=== PATIENT | female | born 1955 | race Caucasian/White ===

== ENCOUNTER 2017-03-26 09:04 | Emergency (ER) | payer BC ==
[2017-03-26 09:13] VITALS: BP 164/93
[2017-03-26] MEDS ORDERED: Sodium Chloride 0.9% 10 ML Syringe FLUSH PRN ×2 (09:49→10:18)
[2017-03-26] MEDS ORDERED: Sodium Chloride 0.9% 500 ML IV ONE (09:49)
[2017-03-26] MEDS ORDERED: HYDROmorphone 0.5 MG/0.5 ML Syringe IVPUSH ONE ×3 (09:49→15:32)
[2017-03-26] MEDS ORDERED: LORazepam 0.5 MG Tab PO ONE (09:49)
[2017-03-26] MEDS ORDERED: Iopamidol 612 MG/ML 100 ML Bottle IVPUSH ONE (10:18)
--- NOTE | 2017-03-26 12:42 | EDM.PDOC ---
ED HPI GENERAL MEDICAL PROBLEM - General Chief Complaint: Back Pain or Injury Stated Complaint: [facility] Time Seen by Provider: 03/26/17 09:33 Source of Information: Reports: Patient, RN Notes Reviewed - History of Present Illness INITIAL COMMENTS - FREE TEXT/NARRATIVE: 62-year-old lady comes in with severe low back pain. This started about 2 or 3 weeks ago, no fall or injury that patient can remember. The pain is primarily in the low mid back with radiation to the left lower extremity. The pain is definitely worse with motion, better to lie still. She is not having abdominal pain. No nausea vomiting fever or chills. She has had some trouble with back pains in the past but nothing near this severe. He has been seen her provider back at home, [place], [place] . She's been on anti-inflammatory medicine. That was stopped 2 days ago and she was started on oral prednisone. It sounds that she also had a steroid injection at that time. She also has been taking Flexeril and hydrocodone without meaningful relief of her discomfort. The pain was so bad this morning she was unable to get up or walk and therefore has come in by ambulance. Treatments STICKER HAND: Reports: Other (see below) Other Treatments STICKER HAND: hydrocodone flexeril prednisone Lower Back Pain Score (Numeric/FACES): 10 - Related Data Allergies Allergy/AdvReac Type Severity Reaction Status Date / Time No Known Allergies Allergy Verified 07/24/15 13:07 CDT Home Meds: Home Meds Levothyroxine [Synthroid] 1 tab PO DAILY 07/24/15 [History] Cyclobenzaprine [Flexeril] 10 mg PO TID 03/26/17 [History] Hydrocodone/Acetaminophen [Hydrocodon-Acetaminophen 5-325] 1 tab PO TID [History] Losartan [Cozaar] 50 mg PO DAILY 03/26/17 [History] Naproxen [Naprosyn] 500 mg PO Q12HR #20 tablet 03/26/17 [Rx] Prednisone [IJD: Prednisone] 10 mg PO TID 03/26/17 [History] oxyCODONE HCl/Acetaminophen [Percocet 5-325 mg Tablet] 1 each PO QID #20 tablet 03/26/17 [Rx] Past Medical History HEENT History: Reports: Impaired Vision Other HEENT History: wears glasses Cardiovascular History: Reports: Heart Murmur Respiratory History: Reports: None Gastrointestinal History: Reports: Other (See Below) Other Gastrointestinal History: colon cancer Genitourinary History: Reports: None [employer] History: Reports: None, Musculoskeletal History: Reports: Fracture Other Musculoskeletal History: left arm Neurological History: Reports: Migraines, Vertigo Psychiatric History: Reports: None Endocrine/Metabolic History: Reports: Hypothyroidism Hematologic History: Reports: None Immunologic History: Reports: None Oncologic (Cancer) History: Reports: Colon Dermatologic History: Reports: None - Past Surgical History Head Surgeries/Procedures: Reports: None HEENT Surgical History: Reports: Tonsillectomy Cardiovascular Surgical History: Reports: None Respiratory Surgical History: Reports: None GI Surgical History: Reports: Colonoscopy, Other (See Below) Other GI Surgeries/Procedures: bowel resection Female Surgical History: Reports: None Endocrine Surgical History: Reports: None Neurological Surgical History: Reports: None Musculoskeletal Surgical History: Reports: None Oncologic Surgical History: Reports: Other (See Below) Other Oncologic Surgeries/Procedures: bowel resection Dermatological Surgical History: Reports: None Social & Family History - Family History Family Medical History: Noncontributory - Tobacco Use Smoking Status *Q: Never Smoker - Caffeine Use Caffeine Use: Reports: Coffee - Alcohol Use Days Per Week of Alcohol Use: 7 Number of Drinks Per Day: 2 Total Drinks Per Week: 14 - Recreational Drug Use Recreational Drug Use: No ED ROS GENERAL - Review of Systems Review Of Systems: See Below Constitutional: Denies: Fever, Chills, Diaphoresis HEENT: Denies: Sinus Problem, Throat Pain, Vertigo Respiratory: Denies: Shortness of Breath, Pleuritic Chest Pain Cardiovascular: Denies: Chest Pain GI/Abdominal: Denies: Abdominal Pain, Nausea, Vomiting : Reports: No Symptoms Musculoskeletal: Reports: Back Pain (Severe low back pain), Leg Pain (Pain is radiated down both legs more on the left) Skin: Denies: Rash Neurological: Reports: Difficulty Walking. Denies: Numbness, Trouble Speaking, Weakness, Change in Speech ED EXAM,LOWER BACK PAIN/INJURY - Physical Exam Exam: See Below General Appearance: Alert, Moderate Distress Eye Exam: Bilateral Eye: PERRL Throat/Mouth: Normal Inspection, Normal Oropharynx Head: Atraumatic. No: Facial Swelling Neck: Supple, Full Range of Motion Respiratory/Chest: Lungs Clear, Normal Breath Sounds Cardiovascular: Regular Rate, Rhythm GI/Abdominal: Soft, Non-Tender Back Exam: Paraspinal Tenderness (Left low back). No: Vertebral Tenderness Extremities: No: Leg Pain, Increased Warmth, Redness Neurological: Alert, No Motor/Sensory Deficits, Oriented x 3, Straight Leg Raise (L) (Pain with straight leg raising on the left about 30) Skin Exam: Warm, Dry, Normal Color Course - Vital Signs Last Recorded V/S: Last Vital Signs Temp 98.9 F 03/26/17 09:06 Pulse 109 H 03/26/17 09:06 Resp 16 03/26/17 09:06 BP 164/93 H 03/26/17 09:06 Pulse Ox 100 03/26/17 09:06 - Orders/Labs/Meds Orders: Active Orders 24 hr Category Date Time Status Peripheral IV Care [RC] . DIRECTED Care 03/26/17 09:50 Active Lumbar Spine w Cont [CT] Stat Exams 03/26/17 09:50 Taken Ketorolac [Toradol] Med 03/26/17 12:45 Active 30 mg IVPUSH ONETIME Sodium Chloride 0.9% [Saline Flush] Med 03/26/17 09:49 Active 10 ml FLUSH ASDIRECTED PRN Sodium Chloride 0.9% [Saline Flush] Med 03/26/17 10:18 Active 10 ml FLUSH ONETIME PRN Peripheral IV Insertion Adult [OM.PC] Stat Oth 03/26/17 09:49 Ordered Medication Orders Ketorolac Tromethamine (Toradol) 30 mg IVPUSH ONETIME NAM Last Admin: 03/26/17 12:41 Dose: 30 mg Sodium Chloride (Saline Flush) 10 ml FLUSH ASDIRECTED PRN PRN Reason: Keep Vein Open Last Admin: 03/26/17 10:05 Dose: 10 ml Sodium Chloride (Saline Flush) 10 ml FLUSH ONETIME PRN PRN Reason: IV FLUSH Last Admin: 03/26/17 10:48 Dose: 10 ml Labs: Laboratory Tests 03/26/17 03/26/17 03/26/17 Range/Units 09:55 09:55 09:55 WBC 11.09 H (3.98-10.04) K/mm3 RBC 3.92 L (3.98-5.22) M/mm3 Hgb 13.1 (11.2-15.7) gm/L Hct 39.0 (34.1-44.9) % MCV 99.5 H (79.4-94.8) fl MCH 33.4 H (25.6-32.2) pg MCHC 33.6 (32.2-35.5) g/dl RDW Std Deviation 43.0 (36.4-46.3) fL Plt Count 427 H (182-369) K/mm3 MPV 8.8 L (9.4-12.3) fl Neut % (Auto) 82.4 H (34.0-71.1) % Lymph % (Auto) 8.1 L (19.3-51.7) % [place] % (Auto) 9.1 (4.7-12.5) % Eos % (Auto) 0.1 L (0.7-5.8) Baso % (Auto) 0.0 L (0.1-1.2) % Neut # (Auto) 9.14 H (1.56-6.13) K/mm3 Lymph # (Auto) 0.90 L (1.18-3.74) K/mm3 [place] # (Auto) 1.01 H (0.24-0.36) K/mm3 Eos # (Auto) 0.01 L (0.04-0.36) K/mm3 Baso # (Auto) 0.00 L (0.01-0.08) K/mm3 Manual Slide Review Abnormal smear Sodium 140 (136-145) mEq/L Potassium 4.5 (3.5-5.1) mEq/L Chloride 104 (98-107) mEq/L Carbon Dioxide 26 (21-32) mEq/L Anion Gap 14.5 (5-15) BUN 28 H (7-18) mg/dL Creatinine 1.1 H (0.55-1.02) mg/dL Est Cr Clr Drug Dosing 49.00 mL/min Estimated GFR (MDRD) 50 (>60) mL/min BUN/Creatinine Ratio 25.5 H (14-18) Glucose 108 (80-115) mg/dL Calcium 10.1 (8.5-10.1) mg/dL Total Bilirubin 0.4 (0.2-1.0) mg/dL AST 32 (15-37) U/L ALT 25 (14-59) U/L Alkaline Phosphatase 141 H (46-116) U/L C-Reactive Protein 1.3 H* (<1.0) mg/dL Total Protein 8.3 H (6.4-8.2) g/dl Albumin 3.3 L (3.4-5.0) g/dl Globulin 5.0 gm/dL Albumin/Globulin Ratio 0.7 L (1-2) Meds: Medications Generic Name Dose Route Start Last Admin Trade Name Freq PRN Reason Stop Dose Admin Ketorolac Tromethamine 30 mg 03/26/17 12:45 03/26/17 12:41 Toradol IVPUSH 30 mg ONETIME NAM Administration Sodium Chloride 10 ml 03/26/17 09:49 03/26/17 10:05 Saline Flush FLUSH 10 ml ASDIRECTED PRN Administration Keep Vein Open Sodium Chloride 10 ml 03/26/17 10:18 03/26/17 10:48 Saline Flush FLUSH 10 ml ONETIME PRN Administration IV FLUSH Discontinued Medications Generic Name Dose Route Start Last Admin Trade Name Freq PRN Reason Stop Dose Admin Hydromorphone HCl 0.5 mg 03/26/17 09:49 03/26/17 10:04 Dilaudid IVPUSH 03/26/17 09:50 0.5 mg ONETIME ONE Administration Hydromorphone HCl 0.5 mg 03/26/17 12:34 03/26/17 12:39 Dilaudid IVPUSH 03/26/17 12:35 0.5 mg ONETIME ONE Administration Sodium Chloride 500 mls @ 999 mls/hr 03/26/17 09:49 03/26/17 10:04 Normal Saline IV 03/26/17 10:19 999 mls/hr .BOLUS ONE Administration Iopamidol 100 ml 03/26/17 10:18 03/26/17 10:48 Isovue-300 (61%) IVPUSH 03/26/17 10:19 100 ml ONETIME ONE Administration Lorazepam 0.5 mg 03/26/17 09:49 03/26/17 10:05 Ativan PO 03/26/17 09:50 0.5 mg ONETIME ONE Administration - Re-Assessments/Exams Free Text/Narrative Re-Assessment/Exam: 03/26/17 14:29 Patient is taking her meds including prednisone and hydrocodone about one hour prior to arrival. She was given further Dilaudid 0.5 mg IV, Ativan 0.5 mg IV after arrival. Gave her fairly good relief while at rest. However when looking at discharge a short time ago pain was starting to come back and get more severe again. Therefore we gave another 0.5 mg Dilaudid IV and also Toradol 30 mg IV. Labs were relatively unremarkable with white blood count of 11,000 C- reactive protein 1.3, other labs as documented. Our nurses then did try help to stand, see how she did walking and also to get to and from the bathroom. She was able to walk with a walker but quite severe difficulty and a lot of discomfort. She was unable to set herself down onto the toilet without nursing assistance. They also state that she was incontinent of urine prior to sitting on the toilet and then had more incontinence after voiding. I did have them do a bladder scan when she was back to her bed and she was still retaining about 450 mL urine. She does not feel that she can safely go to her friend her family 's residence with her current state of discomfort. Therefore I am went to work at exploring the possibility for observation admission for pain control, nursing assistance with the understanding that this will likely be an observation admission. Departure - Departure Time of Disposition: 12:39 Disposition: Home, Self-Care 01 Condition: Fair Clinical Impression: Low back pain radiating down leg, Urinary retention Sciatica Qualifiers: Laterality: left Qualified Code(s): M54.32 - Sciatica, left side - Discharge Information Prescriptions: Naproxen [Naprosyn] 500 mg PO Q12HR #20 tablet oxyCODONE HCl/Acetaminophen [Percocet 5-325 mg Tablet] 1 each PO QID #20 tablet Referrals: PCP,Not In Area [Primary Care Provider] - Forms: ED Department Discharge - My Orders Last 24 Hours: My Active Orders 03/26/17 09:49 Sodium Chloride 0.9% [Saline Flush] 10 ml FLUSH ASDIRECTED PRN Peripheral IV Insertion Adult [OM.PC] Stat 03/26/17 09:50 Peripheral IV Care [RC] . DIRECTED Lumbar Spine w Cont [CT] Stat 03/26/17 10:18 Sodium Chloride 0.9% [Saline Flush] 10 ml FLUSH ONETIME PRN 03/26/17 12:45 Ketorolac [Toradol] 30 mg IVPUSH ONETIME - Assessment/Plan Last 24 Hours: My Active Orders 03/26/17 09:49 Sodium Chloride 0.9% [Saline Flush] 10 ml FLUSH ASDIRECTED PRN Peripheral IV Insertion Adult [OM.PC] Stat 03/26/17 09:50 Peripheral IV Care [RC] . DIRECTED Lumbar Spine w Cont [CT] Stat 03/26/17 10:18 Sodium Chloride 0.9% [Saline Flush] 10 ml FLUSH ONETIME PRN 03/26/17 12:45 Ketorolac [Toradol] 30 mg IVPUSH ONETIME
[2017-03-26] MEDS ORDERED: Ketorolac 30 MG/ML SDV IVPUSH SCH (12:45)
[2017-03-26] MEDS ORDERED: Acetaminophen 325 MG Tab PO ONE (16:02)
--- NOTE | 2017-03-28 07:59 | CT ---
CT lumbar spine Technique: Multiple axial sections were obtained were obtained from the bottom of T11 to the bottom of the sacrum. Reconstructed sagittal and coronal images were reviewed. Intravenous contrast was utilized. Comparison: No prior lumbar spine imaging. Findings: Fractures are identified within the lateral aspects of both sides of the sacrum. On the reconstructed sagittal images there is mild angulation of the S2 sacral segment. Additional fractures are identified within the transverse process of L5 on both sides. No additional fracture is identified. Mild degenerative apophyseal change is seen within the lumbar spine. Vertebral body heights and disc spaces are maintained. No focal disc herniation is seen. No abnormal subluxation is identified. Mild atelectasis is seen inferiorly within both lung bases. No abnormal enhancement is identified within or around the spine. Impression: 1. Fractures on both sides of the sacrum. Slight angulation on the lateral view within the S2 segment. 2. Fractures within the transverse process of L5 on both sides. 3. Mild degenerative change. Diagnostic code #3 I agree with preliminary report issued by [facility] ([facility] report finalized on 03/26/17, 12:13 PM Central Time)
== END 2017-03-26 16:10 | disposition home or self-care (01) ==
LOC: JD.ED 09:04
DX: M54.41 Lumbago with sciatica, right side (principal); R33.9 Retention of urine, unspecified; Z79.899 Other long term (current) drug therapy
CPT/HCPCS: 36415; 51798; 72132; 80053; 85025; 86140; 96361; 96374; 96375; 96376; 99285; A9270; J1170; J1885; J7040; J7050; Q9967; 99284